=== PATIENT | male | born 1990 | race Caucasian/White ===

== ENCOUNTER 2024-12-05 06:08 | Emergency (ER) | payer OTHER ==
[~2024-12-05] VITALS: Ht 167.6 cm; Wt 73.0 kg
[2024-12-05 06:15] VITALS: TEMP 37; O2SAT 100
[2024-12-05 06:39] LABS: BASOPHILS % 0.3 % (0.0-2.0); EOSINOPHILS % 2.0 % (0.0-5.0); HEMATOCRIT. 46.2 % (42.0-52.0); HEMOGLOBIN. 15.6 g/dL (14.0-18.0); LYMPHOCYTES % 23.0 % (20.0-50.0); MEAN PLATELET VOLUME 7.4 fl (7.4-10.4); MONOCYTES % 4.4 % (2.0-8.0); NEUTROPHILS % 70.3 % (40.0-76.0); PLATELET 246 x1000/uL (130-400); RED BLOOD CELL COUNT 4.82 mill/uL (4.7-6.1); RED CELL DISTRIBUTION WIDTH 13.0 % (11.6-14.6)
[2024-12-05 06:48] LABS: CREATININE 0.8 mg/dL (0.6-1.3); UREA NITROGEN BLOOD 9 mg/dL (9-23)
[2024-12-05] MEDS: ONDANSETRON 4MG ODT PO ONE (06:54)
[2024-12-05] MEDS: ACETAMINOPHEN 325MG TABLET PO ONE (06:55)
[2024-12-05 07:20] LABS: ASPARTATE AMINOTRANSFERASE 29 IU/L (<34)
[2024-12-05 07:21] LABS: BILIRUBIN DIRECT < 0.1 mg/dL (<=3.0); BILIRUBIN TOTAL 0.2 mg/dL (0.1-1.0); PROTEIN TOTAL 6.5 g/dL (6.0-8.3)
[2024-12-05] MEDS ORDERED: ONDA-239 PO (07:59)
[2024-12-05 08:13] VITALS: BP 134/85; PULSE 74; RESP 16; O2SAT 100
== END 2024-12-05 08:15 | disposition home or self-care (01) ==
LOC: ER 06:08
DX: R10.33 Periumbilical pain (principal); R11.2 Nausea with vomiting, unspecified
CPT/HCPCS: 99284; 74176; 80076; 80048; 83690; 85025; 36415; Q0162